=== PATIENT | female | born 1995 | race American Indian/Alaskan Native ===

== ENCOUNTER 2018-03-07 11:40 | Emergency (ER) | payer OTHER, MEDICAID ==
[2018-03-07 11:57] VITALS: BP 115/77
[2018-03-07] MEDS ORDERED: MOTRIN PO ONE (12:25)
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
[2018-03-07] MEDS ORDERED: MOTRIN ONE (14:45)
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
== END 2018-03-07 15:34 | disposition home or self-care (01) ==
LOC: ED 11:40
DX: S39.012A Strain of muscle, fascia and tendon of lower back, initial encounter (principal); S13.4XXA Sprain of ligaments of cervical spine, initial encounter; J45.909 Unspecified asthma, uncomplicated; V49.59XA Passenger injured in collision with other motor vehicles in traffic accident, initial encounter; Y93.89 Activity, other specified; Y92.89 Other specified places as the place of occurrence of the external cause; Y99.8 Other external cause status
CPT/HCPCS: 72040; 72100

== ENCOUNTER 2018-07-10 12:08 | Emergency (ER) | payer MEDICAID, OTHER ==
[2018-07-10 12:51] LABS: Bacteria,Urine 1+ /HPF (Negative); Bilirubin,Urine NEG (Negative); Blood,Urine NEG (Negative); Color,Urine Yellow (Yellow); Mucus,Urine FEW /HPF; Protein,Urine <15 mg/dL mg/dL (Negative); Urobilinogen,Urine < 2.0 mg/dL (<2.0)
[2018-07-10] MEDS ORDERED: TYLENOL PO ONE (14:50)
[2018-07-10] MEDS ORDERED: ZOFRAN IV ONE (14:50)
--- NOTE | 2018-07-10 14:51 | Emergency Department Report ---
ED Abdominal Pain HPI - General Chief Complaint: Abdominal Pain Stated Complaint: 4MOS /STOMACH PAIN/VOMITING Time Seen by Provider: 07/10/18 14:51 Source: patient Mode of arrival: Ambulatory Limitations: No Limitations - History of Present Illness Initial Comments: Patient reports she is 16 weeks IUP with abdominal pain, nausea, vomiting and diarrhea that started three days ago. She denies any care, vaginal discharge or bleeding. G4, A0, P3 MD Complaint: abdominal pain, other (N/V/D) Onset/Timin -: days(s) Location: diffuse Radiation: none Migration to: no migration Severity: severe Severity scale (0 -10): 9 Quality: cramping Consistency: constant Improves With: nothing Worsens With: eating, vomiting Context: other (unknown) Associated Symptoms: nausea, vomiting, diarrhea. denies: fever, chills, constipation, dysuria, hematemesis, hematochezia, melena, hematuria, anorexia, syncope Treatments Prior to Arrival: other (none) - Related Data LMP Date: 03/06/18 LMP (females 10-50): Home Medications Medication Instructions Recorded Confirmed Last Taken Vit37/Iron/Folic Acid 1 each PO DAILY 06/23/13 10/30/13 10/05/13 09:00 [Prenata Chewable Tablet] 1 Previous Rx's Medication Instructions Recorded Last Taken Type Ibuprofen [Motrin] 800 mg PO Q8HR PRN #45 tablet 10/17/15 Unknown Rx Ondansetron [Zofran ODT TAB] 8 mg PO Q8HR #14 tab.rapdis 10/17/15 Unknown Rx cephALEXin [Keflex] 500 mg PO Q12HR #14 cap 10/17/15 Unknown Rx metroNIDAZOLE [Flagyl] 500 mg PO Q12HR #14 tab 10/17/15 Unknown Rx Nitrofurantoin [place]/M-Cryst 100 mg PO Q12HR #14 capsule 02/09/16 Unknown Rx [Macrobid CAP] Vit-Fe Fumar-FA [ 1 tab PO QDAY #30 tablet 02/09/16 Unknown Rx Vitamin] Promethazine [Phenergan TAB] 25 mg PO Q6HR PRN #14 tab 04/04/16 Unknown Rx cephALEXin [Keflex] 250 mg PO Q6HR #28 capsule 04/04/16 Unknown Rx Clindamycin [Clindamycin CAP] 300 mg PO Q8H #21 cap 03/07/18 Unknown Rx Cyclobenzaprine [Flexeril] 10 mg PO QHS PRN #10 tablet 03/07/18 Unknown Rx Ibuprofen [Motrin] 600 mg PO Q8H PRN #30 tablet 03/07/18 Unknown Rx Ondansetron [Zofran Odt] 4 mg PO Q6H #8 tab.rapdis 07/10/18 Unknown Rx Allergies Allergy/AdvReac Type Severity Reaction Status Date / Time Latex, Natural Rubber Allergy Hives Verified 07/10/18 12:12 shellfish derived AdvReac Severe Shortness Verified 07/10/18 12:12 of Breath ED Review of Systems ROS: Stated complaint: 4MOS /STOMACH PAIN/VOMITING Other details as noted in HPI Constitutional: denies: chills, fever Eyes: denies: eye pain, eye discharge, vision change ENT: denies: ear pain, throat pain Respiratory: denies: cough, orthopnea, shortness of breath, SOB with exertion, SOB at rest, stridor, wheezing Cardiovascular: denies: chest pain, palpitations Endocrine: no symptoms reported Gastrointestinal: abdominal pain, nausea, diarrhea. denies: constipation, hematemesis, melena, hematochezia Genitourinary: denies: urgency, dysuria, discharge Musculoskeletal: denies: back pain, joint swelling, arthralgia Skin: denies: rash, lesions Neurological: denies: headache, weakness, paresthesias Psychiatric: denies: anxiety, depression Hematological/Lymphatic: denies: easy bleeding, easy bruising ED Past Medical Hx - Past Medical History Hx Hypertension: No Hx Diabetes: No Hx Deep Vein Thrombosis: No Hx Renal Disease: No Hx Sickle Cell Disease: No Hx Seizures: No Hx Asthma: Yes (last attack age 1) Hx HIV: No - Surgical History Additional Surgical History: HERNIA REPAIR - Social History Smoking Status: Former Smoker Substance Use Type: None - Medications Home Medications: Home Medications Medication Instructions Recorded Confirmed Last Taken Type Vit37/Iron/Folic Acid 1 each PO DAILY 06/23/13 10/30/13 10/05/13 09:00 History [Prenata Chewable Tablet] 1 Ibuprofen [Motrin] 800 mg PO Q8HR PRN #45 tablet 10/17/15 Unknown Rx Ondansetron [Zofran ODT TAB] 8 mg PO Q8HR #14 tab.rapdis 10/17/15 Unknown Rx cephALEXin [Keflex] 500 mg PO Q12HR #14 cap 10/17/15 Unknown Rx metroNIDAZOLE [Flagyl] 500 mg PO Q12HR #14 tab 10/17/15 Unknown Rx Nitrofurantoin [place]/M-Cryst 100 mg PO Q12HR #14 capsule 02/09/16 Unknown Rx [Macrobid CAP] Vit-Fe Fumar-FA [ 1 tab PO QDAY #30 tablet 02/09/16 Unknown Rx Vitamin] Promethazine [Phenergan TAB] 25 mg PO Q6HR PRN #14 tab 04/04/16 Unknown Rx cephALEXin [Keflex] 250 mg PO Q6HR #28 capsule 04/04/16 Unknown Rx Clindamycin [Clindamycin CAP] 300 mg PO Q8H #21 cap 03/07/18 Unknown Rx Cyclobenzaprine [Flexeril] 10 mg PO QHS PRN #10 tablet 03/07/18 Unknown Rx Ibuprofen [Motrin] 600 mg PO Q8H PRN #30 tablet 03/07/18 Unknown Rx Ondansetron [Zofran Odt] 4 mg PO Q6H #8 tab.rapdis 07/10/18 Unknown Rx ED Physical Exam - General Limitations: No Limitations General appearance: alert, in no apparent distress - Head Head exam: Present: atraumatic, normocephalic - ENT ENT exam: Present: normal exam, mucous membranes dry - Neck Neck exam: Present: normal inspection, full ROM. Absent: tenderness, meningismus, lymphadenopathy - Respiratory Respiratory exam: Present: normal lung sounds bilaterally. Absent: respiratory distress, wheezes, rales, rhonchi, stridor, chest wall tenderness, accessory muscle use, decreased breath sounds, prolonged expiratory - Cardiovascular Cardiovascular Exam: Present: regular rate, normal rhythm, normal heart sounds. Absent: systolic murmur, diastolic murmur, rubs, gallop - GI/Abdominal GI/Abdominal exam: Present: soft, tenderness (generalized), normal bowel sounds. Absent: guarding, rebound, rigid - Extremities Exam Extremities exam: Present: normal inspection, full ROM, normal capillary refill. Absent: tenderness, pedal edema, joint swelling, calf tenderness - Back Exam Back exam: Present: normal inspection, full ROM. Absent: tenderness, CVA tenderness (R), CVA tenderness (L), muscle spasm, paraspinal tenderness, vertebral tenderness, rash noted - Neurological Exam Neurological exam: Present: alert, oriented X3, CN II-XII intact, normal gait, reflexes normal. Absent: motor sensory deficit - Psychiatric Psychiatric exam: Present: normal affect, normal mood - Skin Skin exam: Present: warm, dry, intact, normal color. Absent: rash ED Course Vital Signs 07/10/18 12:13 Temperature 97.6 F Pulse Rate 70 Respiratory 18 Rate Blood Pressure 105/75 O2 Sat by Pulse 100 Oximetry - Reevaluation(s) Reevaluation #1: 07/10/18 15:33 Intravenous fluids, antiemetic, laboratory and radiology studies ordered ED Medical Decision Making - Lab Data Result diagrams: 07/10/18 15:01 07/10/18 16:28 Lab Results 07/10/18 07/10/18 07/10/18 Range/Units 15:01 16:28 Unknown WBC 10.2 (4.5-11.0) K/mm3 RBC 3.97 (3.65-5.03) M/mm3 Hgb 12.6 (10.1-14.3) gm/dl Hct 37.2 (30.3-42.9) % MCV 94 (79-97) fl MCH 32 (28-32) pg MCHC 34 (30-34) % RDW 14.0 (13.2-15.2) % Plt Count 228 (140-440) K/mm3 Sodium 135 L (137-145) mmol/L Potassium 4.1 (3.6-5.0) mmol/L Chloride 102.7 (98-107) mmol/L Carbon Dioxide 21 L (22-30) mmol/L Anion Gap 15 mmol/L BUN 6 L (7-17) mg/dL Creatinine 0.5 L (0.7-1.2) mg/dL Estimated GFR > 60 ml/min BUN/Creatinine Ratio 12 % Glucose 63 L (65-100) mg/dL Calcium 8.9 (8.4-10.2) mg/dL Total Bilirubin 0.50 (0.1-1.2) mg/dL AST 15 (5-40) units/L ALT 9 (7-56) units/L Alkaline Phosphatase 43 (35-129) units/L Total Protein 6.9 (6.3-8.2) g/dL Albumin 4.1 (3.9-5) g/dL Albumin/Globulin Ratio 1.5 % Lipase 20 (13-60) units/L Urine Color Yellow (Yellow) Urine Turbidity Slightly-cloudy (Clear) Urine pH 6.0 (5.0-7.0) Ur Specific [place] 1.023 (1.003-1.030) Urine Protein <15 mg/dl (Negative) mg/dL Urine Glucose (UA) Neg (Negative) mg/dL Urine Ketones Neg (Negative) mg/dL Urine Blood Neg (Negative) Urine Nitrite Neg (Negative) Urine Bilirubin Neg (Negative) Urine Urobilinogen < 2.0 (<2.0) mg/dL Ur Leukocyte Esterase Neg (Negative) Urine WBC (Auto) 2.0 (0.0-6.0) /HPF Urine RBC (Auto) 1.0 (0.0-6.0) /HPF U Epithel Cells (Auto) 11.0 (0-13.0) /HPF Urine Bacteria (Auto) 1+ (Negative) /HPF Urine Mucus Few /HPF Vital Signs 07/10/18 12:13 Temperature 97.6 F Pulse Rate 70 Respiratory 18 Rate Blood Pressure 105/75 O2 Sat by Pulse 100 Oximetry - Medical Decision Making During the course of ED, intravenous fluids, antiemetic, laboratory and radiology studies ordered. The ultrasound revealed single live intrauterine gestation estimated at 16 weeks 6 days with FHT 154 bpm. Patient reports symptomatic relief from presenting presentation after medication therapy was given in the ED. She was sent home with prescriptions for Zofran, instructed to follow up with the selective referral given at discharge and maintain adequate hydration. She verbalized understanding - Differential Diagnosis IUP@16 weeks, Nausea/Vomiting Critical care attestation.: If time is entered above; I have spent that time in minutes in the direct care of this critically ill patient, excluding procedure time. ED Disposition Clinical Impression: Normal IUP (intrauterine ) on ultrasound Qualifiers: Trimester: second trimester Qualified Code(s): Z34.92 - Encounter for supervision of normal , unspecified, second trimester Nausea and vomiting Qualifiers: Vomiting type: unspecified Vomiting Intractability: non-intractable Qualified Code(s): R11.2 - Nausea with vomiting, unspecified Disposition: DC-01 TO HOME OR SELFCARE Is pt being admited?: No Does the pt Need Aspirin: No Condition: Stable Instructions: (ED), Acute Nausea and Vomiting (ED) Additional Instructions: Take medication as directed. Follow up with [facility] for care. Drink plenty of fluids in order to maintain adequate hydration Prescriptions: Ondansetron [Zofran Odt] 4 mg PO Q6H #8 tab.rapdis Referrals: PRIMARY CARE,MD [Primary Care Provider] - 3-5 Days CURT GALICIA DO [Staff Physician] - 3-5 Days TASNEEM SAUNDERS CNM [Advanced Practice Nurse] - 3-5 Days KYLER MICHAEL CNM [Advanced Practice Nurse] - 3-5 Days Time of Disposition: 17:28
[2018-07-10 15:28] LABS: Hematocrit 37.2 % (30.3-42.9); Hemoglobin 12.6 gm/dl (10.1-14.3); Mean Corpuscular HGB Conc 34 % (30-34); Mean Corpuscular Hemoglobin 32 pg (28-32); Mean Corpuscular Volume 94 fl (79-97); Platelet Count 228 K/mm3 (140-440); Red Blood Count 3.97 M/mm3 (3.65-5.03)
[2018-07-10] MEDS ORDERED: NACL 0.9% 1000 ML 1,000 ML IV ONE (15:38)
[2018-07-10 16:57] LABS: Alanine Aminotransferase 9 units/L (7-56); Albumin 4.1 g/dL (3.9-5); BUN/Creatinine Ratio 12; Blood Urea Nitrogen 6 mg/dL (7-17); Calcium 8.9 mg/dL (8.4-10.2); Hemolysis Index 32; Lipase 20 units/L (13-60)
--- NOTE | 2018-07-10 17:00 | Ultrasound Report ---
FINAL REPORT EXAM: US OB > = 14 WEEKS FETUS HISTORY: pelvic pain TECHNIQUE: Obstetrical ultrasound transabdominal PRIORS: No prior recent studies for comparison FINDINGS: Single live intrauterine gestation present. cardiac activity is present with heart rate 154 beats per minute Cervical length is 4.6 centimeters Placenta is grade 0 and posterior biometric measurements were obtained Biparietal diameter 16 weeks 6 days Head circumference 16 weeks 5 days abdominal circumference 16 weeks 6 days Femur length 16 weeks 5 days Based on today's exam estimated gestational age 16 weeks 6 days with estimated date of delivery December 19, 2018 Estimated weight today is 168 grams IMPRESSION: Single live intrauterine gestation estimated at 16 weeks 6 days
[2018-07-10 17:39] VITALS: BP 115/72
== END 2018-07-10 17:39 | disposition home or self-care (01) ==
LOC: ED 12:08
DX: O21.9 Vomiting of pregnancy, unspecified (principal); O26.892 Other specified pregnancy related conditions, second trimester; R10.84 Generalized abdominal pain; J45.909 Unspecified asthma, uncomplicated; Z87.891 Personal history of nicotine dependence; Z91.040 Latex allergy status; Z91.013 Allergy to seafood; Z91.048 Other nonmedicinal substance allergy status; Z3A.16 16 weeks gestation of pregnancy
CPT/HCPCS: 36415; 76805; 80053; 81001; 83690; 85027; 96361; 96374; 99284; J2405; J7030